=== PATIENT | female | born 1955 | race American Indian/Alaskan Native ===

== ENCOUNTER 2019-02-18 20:24 | Emergency (ER) | payer MEDICARE ==
[2019-02-18] MEDS ORDERED: D50W (25GM) Syringe IV ONE (20:30)
--- NOTE | 2019-02-18 20:30 | Emergency Department Report ---
Stated Complaint: DIZZY, LIGHT HEADED Time Seen by Provider: 02/18/19 20:29 - HPI History of Present Illness: bs < 35 pump off given cracker and juice MSE screening note: Focused history and physical exam performed. Due to findings the following was ordered: ED Disposition for MSE Condition: Stable
[2019-02-18 20:57] LABS: Hematocrit 33.8 % (30.3-42.9); Hemoglobin 10.7 gm/dl (10.1-14.3); Mean Corpuscular HGB Conc 32 % (30-34); Mean Corpuscular Volume 77 fl (79-97); Platelet Count 225 K/mm3 (140-440); Red Blood Count 4.37 M/mm3 (3.65-5.03)
[2019-02-18 21:12] LABS: Albumin 4.3 g/dL (3.9-5); Calcium 10.3 mg/dL (8.4-10.2)
[2019-02-18 22:04] VITALS: BP 121/67
--- NOTE | 2019-02-18 22:22 | Emergency Department Report ---
ED General Adult HPI - General Chief complaint: Hypoglycemia Stated complaint: DIZZY, LIGHT HEADED Time Seen by Provider: 02/18/19 20:29 Source: patient, family Mode of arrival: Wheelchair Limitations: Other - History of Present Illness Initial comments: 63 yo F w/ hx of insulin-dependent diabetes w/insulin pump presents to the ED following syncopal episode. Granddaughter drove pt to the ER. Pt found to be hypoglycemic at triage, accucheck of 50. Pt given 1 amp of D50. Pt currently awake and alert. Pt states she has not eaten at all today. States had no appetite. Denies fever, recent illness. PCP: [facility] - Related Data Home Medications Medication Instructions Recorded Confirmed Last Taken AtorvaSTATin [Lipitor] 20 mg PO DAILY 08/21/16 08/21/16 08/20/16 Cilostazol [Pletal] 100 mg PO TID 08/21/16 08/21/16 08/20/16 Gabapentin [Neurontin] 800 mg PO Q8H 08/21/16 08/21/16 08/20/16 Insulin Aspart Protam & Aspart 0 unit SQ BID 08/21/16 08/21/16 08/20/16 [NovoLOG Mix 70-30 Flexpen] Lisinopril [Zestril TAB] 5 mg PO QDAY 08/21/16 08/21/16 08/20/16 Metoclopramide [Reglan TAB] 10 mg PO TID 08/21/16 08/21/16 08/20/16 buPROPion [Wellbutrin] 300 mg PO DAILY 08/21/16 08/21/16 08/20/16 methOCARBAMOL [Robaxin TAB] 750 mg PO Q6HR 08/21/16 08/21/16 08/20/16 Previous Rx's Medication Instructions Recorded Last Taken Type Aspirin [Aspirin TAB] 325 mg PO QDAY #30 tablet 08/23/16 Unknown Rx Metoprolol [Lopressor] 12.5 mg PO TID #90 tablet 08/23/16 Unknown Rx Allergies Allergy/AdvReac Type Severity Reaction Status Date / Time No Known Allergies Allergy Verified 08/21/16 05:55 ED Review of Systems ROS: Stated complaint: DIZZY, LIGHT HEADED Other details as noted in HPI ED Past Medical Hx - Past Medical History Hx Hypertension: Yes Hx Congestive Heart Failure: No Hx Diabetes: Yes Hx Asthma: No Hx COPD: No - Social History Smoking Status: Never Smoker - Medications Home Medications: Home Medications Medication Instructions Recorded Confirmed Last Taken Type AtorvaSTATin [Lipitor] 20 mg PO DAILY 08/21/16 08/21/16 08/20/16 History Cilostazol [Pletal] 100 mg PO TID 08/21/16 08/21/16 08/20/16 History Gabapentin [Neurontin] 800 mg PO Q8H 08/21/16 08/21/16 08/20/16 History Insulin Aspart Protam & Aspart 0 unit SQ BID 08/21/16 08/21/16 08/20/16 History [NovoLOG Mix 70-30 Flexpen] Lisinopril [Zestril TAB] 5 mg PO QDAY 08/21/16 08/21/16 08/20/16 History Metoclopramide [Reglan TAB] 10 mg PO TID 08/21/16 08/21/16 08/20/16 History buPROPion [Wellbutrin] 300 mg PO DAILY 08/21/16 08/21/16 08/20/16 History methOCARBAMOL [Robaxin TAB] 750 mg PO Q6HR 08/21/16 08/21/16 08/20/16 History Aspirin [Aspirin TAB] 325 mg PO QDAY #30 tablet 08/23/16 Unknown Rx Metoprolol [Lopressor] 12.5 mg PO TID #90 tablet 08/23/16 Unknown Rx ED Physical Exam - General Limitations: Other ED Course Vital Signs 02/18/19 02/18/19 21:01 21:30 Pulse Rate 56 L Respiratory 18 17 Rate Blood Pressure 121/67 [Left] O2 Sat by Pulse 94 Oximetry - Reevaluation(s) Reevaluation #1: 02/18/19 22:00 Hypoglycemia secondary to not eating all day, however, insulin pump remained in place. Pt given one amp of D50 and has eaten a meal. Feeling much better at this time. Alert and oriented x 3. No neuro deficits. Repeat accucheck nml. Advised PCP follow-up as needed. ED Medical Decision Making - Lab Data Result diagrams: 02/18/19 20:41 02/18/19 20:41 - Differential Diagnosis hypoglycemia Critical care attestation.: If time is entered above; I have spent that time in minutes in the direct care of this critically ill patient, excluding procedure time. ED Disposition Clinical Impression: Hypoglycemia Disposition: DC-01 TO HOME OR SELFCARE Is pt being admited?: No Condition: Stable Instructions: Diabetic Hypoglycemia (ED) Referrals: PRIMARY CARE, [Referring] - 3-5 Days Time of Disposition: 22:17
== END 2019-02-18 22:34 | disposition home or self-care (01) ==
LOC: ED 20:24
DX: E11.649 Type 2 diabetes mellitus with hypoglycemia without coma (principal)
CPT/HCPCS: 36415; 80053; 82805; 82962; 85027; 96374